=== PATIENT | male | born 2005 ===

== ENCOUNTER 2023-10-14 18:41 | Emergency (ER) | payer BC ==
[2023-10-14] MEDS: Ibuprofen 800 MG Tab PO STA (19:18)
[2023-10-14] MEDS: Acetaminophen 500 MG Tab PO STA (19:18)
[2023-10-14 20:19] LABS: CORONAVIRUS COVID-19 NAA NEGATIVE (NEGATIVE); INFLUENZA A NAA NEGATIVE (NEGATIVE); INFLUENZA B NAA NEGATIVE (NEGATIVE)
[2023-10-14 20:38] LABS: HIV12 AG/AB 4TH GEN W/REFLEX < 0.1 INDEX (<1.0)
[2023-10-14 21:08] LABS: C. TRACHOMATIS BY PCR NOT DETECTED; N. GONORRHOEAE BY PCR NOT DETECTED
== END 2023-10-14 21:36 | disposition home or self-care (01) ==
LOC: MW.ED 18:41
DX: B34.8 Other viral infections of unspecified site (principal); Z11.3 Encounter for screening for infections with a predominantly sexual mode of transmission; Z75.8 Other problems related to medical facilities and other health care
CPT/HCPCS: 0240U; 36415; 86592; 86803; 87389; 87491; 87591; 87651; 99283; A9270